=== PATIENT | male | born 1970 | race Caucasian/White ===

== ENCOUNTER 2020-08-04 15:41 | Emergency (ER) | payer OTHER ==
[~2020-08-04] VITALS: Ht 188 cm; Wt 102.1 kg
[2020-08-04] MEDS ORDERED: dilTIAZem 25 MG/5 ML VIAL IV ONE (16:30)
[2020-08-04 16:36] LABS: Basophils # (auto) 0 10 ^3/uL (0-0.2); Basophils % (auto) 0.3 % (0.0-2.0); Eosinophils # (auto) 0.3 10 ^3/uL (0-0.8); Eosinophils % (auto) 2.2 % (0.0-7.0); Hematocrit 39.1 % (41.0-53.0); Hemoglobin 13.3 g/dL (13.5-17.5); Lymphocytes # (auto) 1.5 10 ^3/uL (0.4-5.4); Lymphocytes % (auto) 12.9 % (10.0-50.0); Mean Corpuscular Hgb Conc. 34.1 g/dL (32.0-36.0); Mean Corpuscular Volume 85.2 fL (80.0-100.0); Monocytes # (auto) 0.7 10 ^3/uL (0-1.3); Monocytes % (auto) 6.3 % (0.0-12.0); Neutrophils # (auto) 9.2 10 ^3/uL (1.6-8.6); Neutrophils % (auto) 78.3 % (37.0-80.0); Nucleated Red Blood Cells % 0.1 %; Platelet Count (auto) 272 10^3/uL (140-450); Red Blood Cells 4.59 10^6/uL (4.5-5.90); Red Cell Distribution Width 12.9 % (11.8-14.3); White Blood Cell 11.8 10^3/uL (4.4-10.8)
[2020-08-04 16:52] LABS: Albumin 4.2 g/dL (3.4-5.0); Anion Gap 7 (5-15); Blood Urea Nitrogen 14 mg/dL (7-18); Calcium 8.9 mg/dL (8.5-10.1); Carbon Dioxide 23 mmol/L (21-32); Chloride 111 mmol/L (98-107); Glucose 91 mg/dL (74-106); Sodium 141 mmol/L (136-145)
[2020-08-04 16:57] LABS: Alanine Aminotransferase 33 U/L (16-61); Alkaline Phosphatase 51 U/L (45-117); Aspartate Aminotransferase 23 U/L (15-37); BUN/Creatinine Ratio 16.7; Bilirubin, Total 0.3 mg/dL (0.2-1.0); GFR African American 125 mL/min; GFR Non-African American 103 mL/min; Total Protein 7.9 g/dL (6.4-8.2)
[2020-08-04] MEDS ORDERED: AMIODARONE HCL 150 MG in D5W 5% 100 ML IV ONE (18:15)
[2020-08-04] MEDS ORDERED: AMIODARONE 450mg/250ml AE 250 ML IV SCH (18:30)
[2020-08-04] MEDS ORDERED: SODIUM CHLORIDE 0.9% 1,000 ML IV ONE (18:30)
[2020-08-04] MEDS ORDERED: ASPirin 81 mg TAB PO ONE (18:30)
[2020-08-04 18:40] LABS: Urine WBC None Seen /hpf (0 - 3)
[2020-08-04 19:03] LABS: Alcohol, Urine < 3.0 mg/dL (0-10); Amphetamine Screen, Urine NEGATIVE (NEGATIVE); Barbiturate Scree,Urine NEGATIVE (NEGATIVE); Benzodiazephine Screen, Urine NEGATIVE (NEGATIVE); Cannabinoid Screen, Urine NEGATIVE (NEGATIVE); Cocaine Screen, Urine NEGATIVE (NEGATIVE); Opiate Scree,Urine NEGATIVE (NEGATIVE); Phencyclidine Screen, Urine NEGATIVE (NEGATIVE)
[2020-08-04 19:16] LABS: INR 1.03 (0.9-1.15); Partial Thromboplastin Time 26.9 sec (23.0-31.2)
[2020-08-04 19:54] LABS: Urine Bacteria NONE SEEN /hpf (None Seen); Urine Blood Negative /uL (Negative); Urine Specific Gravity 1.005 (1.001-1.035)
[2020-08-04] MEDS ORDERED: METOCLOPRAMIDE HCL 10 MG TAB PO ONE (21:00)
[2020-08-04] MEDS ORDERED: METOPROLOL TARTRATE 1MG/1ML-5ML VIAL IV ONE (22:00)
[2020-08-05] MEDS ORDERED: AMIODARONE 450mg/250ml AE 250 ML IV SCH (00:30)
[2020-08-05 09:50] VITALS: BP 135/89
== END 2020-08-05 10:12 | disposition short-term general hospital (02) ==
LOC: ER 15:41 → EDBD 15:41 → ER 08-05 10:12
DX: I48.91 Unspecified atrial fibrillation (principal); R00.0 Tachycardia, unspecified; Z90.89 Acquired absence of other organs; Z87.891 Personal history of nicotine dependence; Z20.822 Contact with and (suspected) exposure to COVID-19
CPT/HCPCS: 36415; 71045; 80053; 80307; 81001; 83735; 84443; 84484; 85025; 85379; 85610; 85730; 87426; 93005; 96365; 96366; 96375; 99285; J0282; J7060; 96367